=== PATIENT | male | born 1955 | race Caucasian/White ===

== ENCOUNTER 2017-10-07 08:22 | Day surgery (SDC) | payer OTHER ==
[2017-10-07] MEDS ORDERED: MOXIFLOXACIN 0.5% 3 ML OPH OPER (08:30)
[2017-10-07] MEDS ORDERED: SOD CHLORIDE 0.9% 1,000 ML IV ×2 (08:30→09:00)
[2017-10-07] MEDS ORDERED: PROPARACAINE 0.5% 15 ML OPH OPER (08:30)
[2017-10-07] MEDS ORDERED: TROPICAMIDE 1% 3 ML OPH OPER (08:30)
[2017-10-07] MEDS ORDERED: ACETAZOLAMIDE 500 MG PO (08:30)
[2017-10-07] MEDS ORDERED: PHENYLephrine 2.5% 15 ML OPH OPER ×2 (08:30→09:00)
[2017-10-07] MEDS ORDERED: CYCLOPENTOLATE 2% 2 ML OPH OPER (08:30)
[2017-10-07] MEDS ORDERED: LACTATED RINGER'S 1,000 ML IV* (08:30)
[2017-10-07] MEDS ORDERED: EPINEPHrine 1 MG IN 3 ML (1:3000) FOR *INTRA-OP* USE INJ (08:30)
[2017-10-07] MEDS ORDERED: BROMFENAC SODIUM 1.7 ML OPH DROP OPER (08:30)
[2017-10-07] MEDS ORDERED: PREDNISOLONE ACET 1% 5 ML OPH OPER (09:00)
[2017-10-07] MEDS: PHENYLephrine 10% 5 ML OPH OPER (09:14)
[2017-10-07] MEDS: TROPICAMIDE 1% 3 ML OPH OPER (09:15)
[2017-10-07] MEDS: MOXIFLOXACIN 0.5% 3 ML OPH OPER (09:15)
[2017-10-07] MEDS: PREDNISOLONE ACET 1% 5 ML OPH OPER (09:15)
[2017-10-07] MEDS: PROPARACAINE 0.5% 15 ML OPH OPER (09:15)
[2017-10-07] MEDS ORDERED: MIDAZOLAM 1 MG/ML 2 ML INJ (11:19)
[2017-10-07] MEDS ORDERED: FENTAnyl 50 MCG/ML VIAL (11:19)
[2017-10-07] MEDS ORDERED: EPINEPHrine 1 MG INJ (11:31)
[2017-10-07] MEDS: LIDOCAINE 1%/EPI 30 ML INJ (11:37)
[2017-10-07] MEDS ORDERED: ONDANSETRON 4 MG INJ (11:49)
[2017-10-07] MEDS ORDERED: METOCLOPRAMIDE 10 MG INJ (11:49)
[2017-10-07] MEDS ORDERED: DEXAMETHASONE 4 MG/ML 1 ML INJ (11:49)
== END 2017-10-07 13:17 | disposition home or self-care (01) ==
LOC: SDS 08:22
DX: H25.21 Age-related cataract, morgagnian type, right eye (principal); I10 Essential (primary) hypertension
CPT/HCPCS: 66984